=== PATIENT | female | born 1955 | race African-American/Black ===

== ENCOUNTER → 2016-12-24 | Outpatient (CLI) | payer MEDICAID ==
--- NOTE | 2016-12-24 08:00 | WOMENS IMAGING REPORT ---
EXAM DESCRIPTION: U/S ABDOMEN LIMITED COMPLETED DATE/TIME: 12/24/2016 7:50 am REASON FOR STUDY: R10.13;EPIGASTRIC PAIN, R19.7 DIARRHEA,UNSPECIFIED EPIGASTRIC PAIN R10.13 EPIGAST ALLISON PAIN R19.7 DIARRHEA, UNSPECIFIED COMPARISON: None. TECHNIQUE: Dynamic and static grayscale images acquired of the abdomen and recorded on PACS. Additio nal selected color Doppler and spectral images recorded. LIMITATIONS: None. FINDINGS: PANCREAS: No masses. Visualized pancreatic duct normal caliber. LIVER: No masses. Echotexture normal. LIVER VASCULATURE: Normal directional flow of the main portal vein and hepatic veins. GALLBLADDER: Patient is status post cholecystectomy. ULTRASOUND-DETECTED CRABTREE'S SIGN: Negative. INTRAHEPATIC DUCTS AND COMMON DUCT: CBD and intrahepatic ducts normal caliber. No filling defects. INFERIOR VENA CAVA: Normal flow. AORTA: No aneurysm. RIGHT KIDNEY: Normal size. Normal echogenicity. No solid or suspicious masses. No hydronephrosis. No calcifications. PERITONEAL AND RIGHT PLEURAL SPACE: No ascites or effusions. OTHER: No other significant findings. TECHNICAL DOCUMENTATION: JOB ID: [id number] [employer]- All Rights Reserved
== END ==
LOC: WI 07:01
PROVIDERS: ATTEND Physician Assistant
DX: R10.13 Epigastric pain (principal); R19.7 Diarrhea, unspecified
CPT/HCPCS: 76705

== ENCOUNTER 2018-05-04 10:14 | Emergency (ER) | payer MEDICAID ==
[2018-05-04 10:21] VITALS: BP 130/77
--- NOTE | 2018-05-04 10:57 | ER Document Report ---
ED ENT - General Chief Complaint: Sore Throat Stated Complaint: SORE THROAT Time Seen by Provider: 05/04/18 10:37 Mode of Arrival: Ambulatory Information source: Patient Notes: [age]-year-old female presented ED for complaint of sore throat since yesterday. She has noticed white spots in her throat this morning. She states she has pain to both sides of her throat and to her lymph nodes in her neck. Patient states she was recently treated for throat cancer in August 2017 with chemo and radiation. She states she is in remission at this time. States she is a former smoker but does not smoke at this time. TRAVEL OUTSIDE OF THE [place] IN LAST 30 DAYS: No - HPI Patient complains to provider of: Throat problem Onset: Yesterday Onset/Duration: Gradual Quality of pain: Achy, Sharp Severity: Mild Pain Level: 2 Context: Recent Illness, Other - Throat: Cancer in 2016 Location of pain: Throat Associated symptoms: Sore throat, Swollen glands Similar symptoms previously: Yes Recently seen / treated by doctor: No - Related Data Allergies/Adverse Reactions: No Known Allergies Allergy (Unverified 03/28/16 11:39) Past Medical History - General Information source: Patient - Social History Smoking Status: Former Smoker Cigarette use (# per day): No Chew tobacco use (# tins/day): No Smoking Education Provided: No Frequency of alcohol use: None Drug Abuse: None Lives with: Family Family History: Reviewed & Not Pertinent Patient has suicidal ideation: No Patient has homicidal ideation: No - Past Medical History Cardiac Medical History: Reports: Hx Hypertension Pulmonary Medical History: Reports: None EENT Medical History: Reports: None Neurological Medical History: Reports: None Endocrine Medical History: Reports: Hx Diabetes Mellitus Type 1 Renal/ Medical History: Reports: None Malignancy Medical History: Reports: Other - Throat cancer GI Medical History: Reports: None Musculoskeltal Medical History: Reports None Skin Medical History: Reports None Psychiatric Medical History: Reports: None Traumatic Medical History: Reports: None Infectious Medical History: Reports: None Past Surgical History: Reports: Hx Cholecystectomy - Immunizations Immunizations up to date: Yes Hx Diphtheria, Pertussis, Tetanus Vaccination: No Review of Systems - Review of Systems Constitutional: No symptoms reported EENT: Throat pain, Other - Lymphadenopathy Cardiovascular: No symptoms reported Respiratory: No symptoms reported Gastrointestinal: No symptoms reported Genitourinary: No symptoms reported Female Genitourinary: No symptoms reported Musculoskeletal: No symptoms reported Skin: No symptoms reported Hematologic/Lymphatic: No symptoms reported Neurological/Psychological: No symptoms reported -: Yes All other systems reviewed and negative Physical Exam - Vital signs Vitals: Temp Pulse Resp BP Pulse Ox 98.4 F 64 16 130/77 H 100 05/04/18 10:20 05/04/18 10:20 05/04/18 10:20 05/04/18 10:20 05/04/18 10:20 Interpretation: Normal - General General appearance: Appears well, Alert - HEENT Head: Normocephalic, Atraumatic Eyes: Normal Pupils: PERRL Ears: Normal External canal: Normal Tympanic membrane: Normal Sinus: Normal Nasal: Normal Mouth/Lips: Normal Mucous membranes: Normal Pharynx: Other - White patches to the back of the throat Neck: Anterior cervical chain - Respiratory Respiratory status: No respiratory distress Chest status: Nontender Breath sounds: Normal Chest palpation: Normal - Cardiovascular Rhythm: Regular Heart sounds: Normal auscultation Murmur: No - Abdominal Inspection: Normal Distension: No distension Bowel sounds: Normal Tenderness: Nontender Organomegaly: No organomegaly - Back Back: Normal, Nontender - Extremities General upper extremity: Normal inspection, Nontender, Normal color, Normal ROM , Normal temperature General lower extremity: Normal inspection, Nontender, Normal color, Normal ROM , Normal temperature, Normal weight bearing. No: Karri's sign - Neurological Neuro grossly intact: Yes Cognition: Normal Orientation: AAOx4 [place] Coma Scale Eye Opening: Spontaneous Maxi Coma Scale Verbal: Oriented Maxi Coma Scale Motor: Obeys Commands Maxi Coma Scale Total: 15 Speech: Normal Motor strength normal: LUE, RUE, LLE, RLE Sensory: Normal - Psychological Associated symptoms: Normal affect, Normal mood - Skin Skin Temperature: Warm Skin Moisture: Dry Skin Color: Normal Course - Re-evaluation Re-evalutation: 05/04/18 10:57 This patient has a history of throat cancer and states she is supposed to be in remission as of August. She was treated with radiation and chemo. We will send a strep and a throat for yeast and patient has been informed she needs to follow-up with her oncologist promptly. - Vital Signs Vital signs: Temp Pulse Resp BP Pulse Ox 98.4 F 64 16 130/77 H 100 05/04/18 10:20 05/04/18 10:20 05/04/18 10:20 05/04/18 10:20 05/04/18 10:20 Discharge - Discharge Clinical Impression: Oral candidiasis Condition: Stable Disposition: HOME, SELF-CARE Instructions: Oral Thrush ([facility]) Additional Instructions: Oral Thrush You have thrush. This is a yeast infection of the mucous membranes in the mouth, caused by an organism called ary. Typical symptoms are redness, tenderness, and white spots "stuck" on the membranes. Thrush often occurs after treatment with antibiotics, particularly in infants. In adults, the infection is unusual. It usually requires further evaluation for a possible hidden disease such as diabetes or a problem with the immune system. Thrush is treated with antifungal medication. The medicine is rubbed into the cheeks. Several days are required for healing. You should return if you do not improve as expected, or if any new or unusual symptoms develop. Will be given some nystatin which will help with your thrush to your mouth. You will need to gargle with warm salt and soda solution and then gargle with nystatin to cure your thrush which is a yeast infection to your throat Salt and soda solution 1 quart of water 1 tablespoon of salt 1 teaspoon of baking soda Mixed 3 ingredients together and boil for 1 minute Placed in a covered quart jar Use 1/2 ounce of cold solution to gargle 3 times a day FOLLOW-UP CARE: If you have been referred to a physician for follow-up care, call the physician s office for an appointment as you were instructed or within the next two days. If you experience worsening or a significant change in your symptoms, notify the physician immediately or return to the Emergency Department at any time for re-evaluation. Please call your oncologist today and inform them of your diagnosis of thrush. If you are having pain in your throat you still need to call your oncologist and let them know as you have a history of oral cancer. Prescriptions: Nystatin 5 ml PO QID #200 ml Forms: Elevated Blood Pressure
[2018-05-04] MEDS ORDERED: NYSTATIN 500000 UNIT/5 ML UDCUP PO ONE (11:40)
== END 2018-05-04 11:56 | disposition home or self-care (01) ==
LOC: ER 10:14
DX: B37.0 Candidal stomatitis (principal); J02.9 Acute pharyngitis, unspecified; R59.1 Generalized enlarged lymph nodes; E10.9 Type 1 diabetes mellitus without complications; I10 Essential (primary) hypertension; Z85.819 Personal history of malignant neoplasm of unspecified site of lip, oral cavity, and pharynx; Z92.3 Personal history of irradiation; Z92.21 Personal history of antineoplastic chemotherapy; Z87.891 Personal history of nicotine dependence
CPT/HCPCS: 87070; 87210; 87880; 99282

== ENCOUNTER → 2019-09-01 | Outpatient (CLI) | payer MEDICAID | LOC: WI 07:12 | PROVIDERS: ATTEND Physician Assistant | DX: Z12.31 Encounter for screening mammogram for malignant neoplasm of breast (principal) | CPT/HCPCS: 77063; 77067 ==

== ENCOUNTER → 2019-10-05 | Outpatient (CLI) | payer MEDICAID ==
--- NOTE | 2019-10-05 16:18 | RADIOLOGY REPORT (SQ) ---
EXAM DESCRIPTION: U/S THYROID/SFT TISS HD NECK COMPLETED DATE/TIME: 10/05/2019 3:56 pm REASON FOR STUDY: R94.6 ABNORMAL RESULTS OF THYROID FUNCTION STUDIES R94.6 ABNORMAL RESULTS OF THYR OID FUNCTION STUDIES COMPARISON: 03/28/2016 TECHNIQUE: Dynamic and static bueno-scale images acquired of the thyroid gland. Selected additional c olor/power Doppler images recorded. All images stored to PACS. LIMITATIONS: None. FINDINGS: RIGHT LOBE: Normal size. Homogeneous echotexture. No cystic or solid masses. LEFT LOBE: Normal size. Homogeneous echotexture. Multiple small colloid cyst. There is a single 4. 0 x 2.1 x 2.9 mm hypo solid-appearing lesion. Borders are ill-defined. It is wider than tall. No c alcifications. ISTHMUS: Normal size. Homogeneous echotexture. No cystic or solid masses. OTHER: No other significant finding. IMPRESSION: Single small hypoechoic solid lesion in the left lobe of the thyroid gland. This measur es only 4.0 x 2.1 x 2.9 mm. Based on size no further follow-up is warranted. TECHNICAL DOCUMENTATION: JOB ID: [id number] [employer]- All Rights Reserved Reading location - IP/workstation name: [email or web address]
== END ==
LOC: RAD 15:28
PROVIDERS: ATTEND Physician Assistant
DX: R94.6 Abnormal results of thyroid function studies (principal)
CPT/HCPCS: 76536

== ENCOUNTER → 2020-02-13 | Outpatient (CLI) | payer MEDICAID ==
--- NOTE | 2020-02-13 10:52 | RADIOLOGY REPORT (SQ) ---
EXAM DESCRIPTION: BARIUM SWALLOW ESOPHAGUS COMPLETED DATE/TIME: 02/13/2020 9:34 am REASON FOR STUDY: DYSPHAGIA, OROPHARYNGEAL PHASE R13.12 DYSPHAGIA, OROPHARYNGEAL PHASE COMPARISON: None. TECHNIQUE: Under fluoroscopic guidance, patient ingested effervescent granules followed by thick and thin barium. Fluoroscopic spot images and routine radiographic images acquired and stored on PACS. 12 MM BARIUM TABLET GIVEN: Yes. No significant delay in passage. LIMITATIONS: None. FLUOROSCOPY TIME: FLUORO TIME: 1.8 MINUTES OF FLUOROSCOPY WAS USED. 7 images saved to PACS. FINDINGS: NEUROMUSCULAR COORDINATION OF SWALLOW: Normal. No aspiration. ESOPHAGEAL MOTILITY: Normal peristalsis. No esophageal spasm. ESOPHAGEAL MUCOSA: Normal mucosa without masses or ulceration. GASTRO-ESOPHAGEAL JUNCTION: No hiatal hernia or reflux. NON-GI TRACT STRUCTURES: No significant finding. OTHER: No other significant finding. IMPRESSION: NORMAL DOUBLE CONTRAST BARIUM SWALLOW. COMMENT: Quality ID 145: Final reports for procedures using fluoroscopy that document radiation exp osure indices, or exposure time and number of fluorographic images (if radiation exposure indices are not available) TECHNICAL DOCUMENTATION: JOB ID: [id number] 2010 [employer]- All Rights Reserved Reading location - IP/workstation name: [email or web address]
== END ==
LOC: RAD 08:37
PROVIDERS: ATTEND Physician Assistant
DX: R13.12 Dysphagia, oropharyngeal phase (principal)
CPT/HCPCS: 74220

== ENCOUNTER → 2020-06-28 | Outpatient (CLI) | payer MEDICAID ==
--- NOTE | 2020-06-28 16:06 | RADIOLOGY REPORT (SQ) ---
EXAM DESCRIPTION: U/S EXTREMITY NONVASCULAR LTD IMAGES COMPLETED DATE/TIME: 06/28/2020 1:41 pm REASON FOR STUDY: LOCALIZED SWELLING, MASS OR LUMP R22.2 LOCALIZED SWELLING, MASS AND LUMP, TRUNK COMPARISON: None. TECHNIQUE: Dynamic and static grayscale images acquired of the localized site of clinical concern an d recorded on PACS. Additional selected color Doppler and spectral images recorded. SITE OF CONCERN: Right back. LIMITATIONS: None. FINDINGS: 4.6 x 4.1 x 1.6 cm isoechoic nodule with echogenic capsule and no internal flow on color D oppler. IMPRESSION: Benign lipoma. TECHNICAL DOCUMENTATION: JOB ID: [id number] 2010 [employer]- All Rights Reserved Reading location - IP/workstation name: [email or web address]
== END ==
LOC: RAD 13:19
PROVIDERS: ATTEND Physician Assistant
DX: D17.1 Benign lipomatous neoplasm of skin and subcutaneous tissue of trunk (principal)
CPT/HCPCS: 76882

== ENCOUNTER → 2020-08-21 | Outpatient (CLI) | payer MEDICAID ==
--- NOTE | 2020-08-21 14:02 | RADIOLOGY REPORT (SQ) ---
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 TECHNIQUE: Post IV contrasted scanning from skull base through lung apices with review of bone, soft tissue and lung windows. Reconstructed coronal and sagittal MPR images reviewed. All images stored on PACS. All CT scanners at this facility use dose modulation, iterative reconstruction, and/or weight based d osing when appropriate to reduce radiation dose to as low as reasonably achievable (ALARA). [facility]: Dose Right [facility]: CareDose [facility]: Dose Right [facility]: Teradose 4D [facility]: Likehack CONTRAST TYPE AND DOSE: 80 mL Omnipaque 350- low osmolar. RENAL FUNCTION: Creatinine 0.9 RADIATION DOSE: . LIMITATIONS: None. FINDINGS: SKULL BASE: Intact. MAJOR SALIVARY GLANDS: No solid or cystic masses. No inflammatory changes. LYMPHADENOPATHY: No adenopathy. MUCOSAL MASSES OR ASYMMETRY: No mucosal masses or asymmetry. LARYNX/CORDS: No abnormal findings. VASCULAR STRUCTURES: The major vessels are patent. LUNG APICES: Centrilobular emphysematous changes. No mass. No pneumothorax. BONES: Multilevel spondylotic changes. No evidence of acute osseous injury or suspicious lytic/ chastity tic osseous lesions. THYROID: Normal size. No masses. PARANASAL SINUSES: Clear. OTHER: No other significant finding. IMPRESSION: NO SIGNIFICANT FINDING IN THE SOFT TISSUES OF THE NECK. TECHNICAL DOCUMENTATION: JOB ID: [id number] Quality ID # [id number]: Final reports with documentation of one or more dose reduction techniques (e.g., Au tomated exposure control, adjustment of the mA and/or kV according to patient size, use of iterative reconstruction technique) 2010 [employer]- All Rights Reserved Reading location - IP/workstation name: [email or web address]
--- NOTE | 2020-08-21 14:12 | RADIOLOGY REPORT (SQ) ---
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 TECHNIQUE: CT scan of the chest performed using helical scanning technique with dynamic intravenous contrast injection. Images reviewed with lung, soft tissue and bone windows. Reconstructed coronal and sagittal MPR and MIP images reviewed. All images stored on PACS. All CT scanners at this facility use dose modulation, iterative reconstruction, and/or weight based d osing when appropriate to reduce radiation dose to as low as reasonably achievable (ALARA). [facility]: Dose Right [facility]: CareDose [facility]: Dose Right [facility]: Teradose 4D [facility]: [place] CONTRAST TYPE AND DOSE: contrast/concentration: Isovue 350.00 mmol/ml; Total Contrast Delivered: 80. 0 ml; Total Saline Delivered: 50.0 ml RENAL FUNCTION: Creatinine 0.9 RADIATION DOSE: . LIMITATIONS: None. FINDINGS: LUNGS AND PLEURA: Centrilobular emphysematous changes involving predominantly the apical l ungs. No suspicious nodule or mass. No focal consolidation. No pleural effusion. No pneumothorax. HILAR AND MEDIASTINAL STRUCTURES: No identified masses or abnormal nodes. HEART AND VASCULAR STRUCTURES: No aneurysm or dissection. No central pulmonary emboli. No pericardi al effusion. HARDWARE: None in the chest. UPPER ABDOMEN: No significant findings. Limited exam. THYROID AND OTHER SOFT TISSUES: No masses. No adenopathy. BONES: No significant finding. OTHER: No other significant finding. IMPRESSION: Centrilobular emphysematous changes involving predominantly the apical lungs. No eviden ce of acute cardiopulmonary abnormality or findings to suggest primary/metastatic disease. TECHNICAL DOCUMENTATION: JOB ID: [id number] Quality ID # 436: Final reports with documentation of one or more dose reduction techniques (e.g., Au tomated exposure control, adjustment of the mA and/or kV according to patient size, use of iterative reconstruction technique) 2010 [employer]- All Rights Reserved Reading location - IP/workstation name: [email or web address]-
== END ==
LOC: RAD 07:25
PROVIDERS: ATTEND Internal Medicine Hematology & Oncology
DX: C09.8 Malignant neoplasm of overlapping sites of tonsil (principal); J43.2 Centrilobular emphysema
CPT/HCPCS: 70491; 71260; 82565

== ENCOUNTER → 2020-10-19 | Outpatient (CLI) | payer MEDICAID ==
--- NOTE | 2020-10-19 11:21 | WOMENS IMAGING REPORT ---
EXAM DESCRIPTION: BILAT SCREENING MAMMO W/CAD IMAGES COMPLETED DATE/TIME: 10/19/2020 8:40 am REASON FOR STUDY: Z12.31 ENCNTR SCREEN MAMMOGRAM FOR MALIGNANT NEOPLASM OF BREAST Z12.31 ENCNTR SCR EEN MAMMOGRAM FOR MALIGNANT NEOPLASM OF JEROD COMPARISON: 2019 EXAM PARAMETERS: Standard craniocaudal and mediolateral oblique views of each breast recorded using digital acquisition. Read with the assistance of CAD. .[facility] - [employer] Vegetable Preparer Version 9.2 LIMITATIONS: None. FINDINGS: No suspicious masses, suspicious calcifications or architectural distortion. No areas of c oncern. IMPRESSION: NEGATIVE MAMMOGRAM. BIRADS 1 BREAST DENSITY: c. The breasts are heterogeneously dense, which may obscure small masses. BIRAD: ASSESSMENT: 1 NEGATIVE RECOMMENDATION: ROUTINE SCREENING COMMENT: The patient has been notified of the results by letter per MQSA requirements. Additional no tification policies are in place for contacting patient with suspicious or incomplete findings. Quality ID #225: The [employer] recommends an annual screening mammogram for women aged 40 years or over. This facility utilizes a reminder system to ensure that all patients receive reminder letters, and/or direct phone calls for appointments. This includes reminders for routine scr eening mammograms, diagnostic mammograms, or other Breast Imaging Interventions when appropriate. Th is patient will be placed in the appropriate reminder system. TECHNICAL DOCUMENTATION: FINDING NUMBER: (1) ASSESSMENT: (1) JOB ID: [id number] 2010 [employer]- All Rights Reserved Reading location - IP/workstation name: [email or web address]
== END ==
LOC: WI 08:09
PROVIDERS: ATTEND Physician Assistant
DX: Z12.31 Encounter for screening mammogram for malignant neoplasm of breast (principal)
CPT/HCPCS: 77067